=== PATIENT | female | born 1985 | race Caucasian/White ===

== ENCOUNTER 2016-11-26 13:12 | Outpatient (CLI) | payer OTHER | END 2016-11-26 13:13 | disposition home or self-care (01) | DX: O30.042 Twin pregnancy, dichorionic/diamniotic, second trimester (principal); O26.892 Other specified pregnancy related conditions, second trimester ==

== ENCOUNTER 2018-07-29 09:33 | Outpatient (CLI) | payer BC | END 2018-07-29 09:34 | disposition home or self-care (01) | LOC: LAB 09:33 | PROVIDERS: ATTEND Obstetrics & Gynecology | DX: N96 Recurrent pregnancy loss (principal); N91.2 Amenorrhea, unspecified | CPT/HCPCS: 36415; 84702 ==

== ENCOUNTER 2019-02-24 16:27 | Outpatient (CLI) | payer BC | END 2019-02-24 16:28 | disposition home or self-care (01) | LOC: LAB 16:27 | PROVIDERS: ATTEND Obstetrics & Gynecology | DX: O26.893 Other specified pregnancy related conditions, third trimester (principal); Z3A.34 34 weeks gestation of pregnancy | CPT/HCPCS: 82239 ==

== ENCOUNTER 2019-03-03 09:36 | Outpatient (CLI) | payer BC ==
[2019-03-03 10:38] LABS: ALBUMIN 2.9 g/dL (3.2-5.5); BILIRUBIN,DIRECT 0.1 mg/dL (0.1-0.5); BILIRUBIN,TOTAL 0.4 mg/dL (0.2-1.0); TOTAL PROTEIN 6.7 g/dL (6.7-8.2)
== END 2019-03-03 09:37 | disposition home or self-care (01) ==
LOC: LAB 09:36
PROVIDERS: ATTEND Student in an Organized Health Care Education/Training Program
DX: O26.613 Liver and biliary tract disorders in pregnancy, third trimester (principal); K83.1 Obstruction of bile duct
CPT/HCPCS: 36415; 80076

== ENCOUNTER 2019-11-09 18:40 | Outpatient (CLI) | payer OTHER ==
--- NOTE | 2019-11-10 10:09 | XRAY Report ---
Reason: INFLAMMATORY ARTHRITIS Procedure Date: 11/09/2019 Accession Number: [id number] / [id number] Procedure: XR - Foot 3 View BILAT CPT Code: Final Report FULL RESULT: EXAMS: 1. Right Foot Radiography 2. Left Foot Radiography EXAM DATE: 11/09/2019 07:14 PM. CLINICAL HISTORY: INFLAMMATORY ARTHRITIS. COMPARISON: FOOT 2 VIEW BILAT 02/14/2016 2:21 PM. TECHNIQUE: 3 views each foot. FINDINGS: Right: Bones: Normal. No fractures or bone lesions. Joints: Suggestion of calcaneonavicular coalition. No subluxations. Soft Tissues: Normal. No soft tissue swelling. Left: Bones: Normal. No fractures or bone lesions. Joints: Suggestion of calcaneonavicular coalition. No subluxations. Soft Tissues: Normal. No soft tissue swelling. IMPRESSION: 1. No radiographic evidence of inflammatory arthropathy. 2. Suggestion of bilateral calcaneonavicular coalitions. RADIA
--- NOTE | 2019-11-10 10:10 | XRAY Report ---
Reason: INFLAMMATORY ARTHRITIS Procedure Date: 11/09/2019 Accession Number: [id number] / [id number] Procedure: XR - Hand 3 View BILAT CPT Code: Final Report FULL RESULT: EXAMS: 1. Right Hand Radiography 2. Left Hand Radiography EXAM DATE: 11/09/2019 07:15 PM. CLINICAL HISTORY: INFLAMMATORY ARTHRITIS. COMPARISON: HAND 2 VIEW BILAT 02/14/2016 2:21 PM. TECHNIQUE: 3 views each hand. FINDINGS: Right: Bones: Normal. No fractures or bone lesions. Joints: Normal. No subluxations. Soft Tissues: Normal. No soft tissue swelling. Left: Bones: Normal. No fractures or bone lesions. Joints: Normal. No subluxations. Soft Tissues: Normal. No soft tissue swelling. IMPRESSION: Normal bilateral hand radiography. [facility]
== END 2019-11-09 18:41 | disposition home or self-care (01) ==
LOC: DI 18:40
PROVIDERS: ATTEND Internal Medicine
DX: M19.90 Unspecified osteoarthritis, unspecified site (principal)

== ENCOUNTER 2020-09-19 08:00 | Outpatient (CLI) | payer BC, OTHER ==
[2020-09-19 17:09] LABS: BASOPHILS % (AUTO) 0.4 %; EOSINOPHILS # (AUTO) 0.1 10^3/uL (0.0-0.7); EOSINOPHILS % (AUTO) 0.5 %; HGB - HEMOGLOBIN 11.5 g/dL (12.0-16.0); LYMPHOCYTES # (AUTO) 2.4 10^3/uL (1.5-3.5); LYMPHOCYTES % (AUTO) 22.8 %; MEAN CORPUSCULAR HGB CONC 31.7 g/dL (32.0-36.0); MEAN CORPUSCULAR VOLUME 91.4 fL (81.0-99.0); MEAN PLATELET VOLUME 9.1 fL (7.9-10.8); MONOCYTES # (AUTO) 0.5 10^3/uL (0.0-1.0); MONOCYTES % (AUTO) 4.9 %; NEUTROPHILS # (AUTO) 7.5 10^3/uL (1.5-6.6); NEUTROPHILS % (AUTO) 70.9 %; PLT - PLATELET COUNT 326 10^3/uL (130-450); RED BLOOD COUNT 3.97 10^6/uL (4.20-5.40); RED CELL DISTRIBUTION WIDTH 13.8 % (12.0-15.0); WHITE BLOOD COUNT 10.6 x10^3/uL (4.8-10.8)
[2020-09-19 17:27] LABS: ALBUMIN 4.2 g/dL (3.2-5.5); ALBUMIN/GLOBULIN RATIO 1.4 (1.0-2.2); BILIRUBIN,TOTAL 0.3 mg/dL (0.2-1.0); CALCIUM 9.2 mg/dL (8.5-10.3); CREATININE 0.6 mg/dL (0.4-1.0); TOTAL PROTEIN 7.3 g/dL (6.7-8.2)
== END 2020-09-19 23:59 | disposition home or self-care (01) ==
LOC: LAB 08:00
PROVIDERS: ATTEND Internal Medicine
DX: M05.79 Rheumatoid arthritis with rheumatoid factor of multiple sites without organ or systems involvement (principal)
CPT/HCPCS: 36415; 80053; 85025; 85651; 86140

== ENCOUNTER 2020-10-25 18:53 | Outpatient (CLI) | payer OTHER ==
--- NOTE | 2020-10-26 11:04 | Ultrasound Report ---
PROCEDURE: Pelvic w/Transvaginal INDICATIONS: ABNORMAL UTERINE BLEEDING TECHNIQUE: Real-time scanning was performed of the pelvic organs, with image documentation. Additional endovagi nal scanning was necessary due to incomplete visualization of the adnexal and endometrial structures by transabdominal scanning. COMPARISON: 01/21/2014 pelvic ultrasound FINDINGS: Mild amount of free fluid in the cul-de-sac is within physiologic normal limits. Uterus: Uterus is borderline enlarged measuring 5.1 x 6.1 x 9.0 cm. scar noted anteriorly. The endometrium measures 11 mm in combined double layer thickness. Heterogenous echogenicity of the endometrium with areas of hypoechoic signal presumably presenting most likely representing physiologi c cystic change. There is free fluid in the uterine cavity. No uterine mass. Ovaries: There is a complex cyst in the right ovary measuring approximately 2 x 2 x 2 cm, likely a r esolving hemorrhagic cyst. Multiple follicles are present in both ovaries. The ovaries are otherwise normal in size and appearance. IMPRESSION: Uterus is borderline enlarged with no uterine mass. Mildly thickened endometrium with heterogeneous echogenicity, similar appearance to the comparison ex am. Reviewed by: Godwin eDe MD on 10/26/2020 11:03 AM PST Approved by: Godwin Dee MD on 10/26/2020 11:03 AM PST Station ID: [id number]
== END 2020-10-25 18:54 | disposition home or self-care (01) ==
LOC: DI 18:53
PROVIDERS: ATTEND Obstetrics & Gynecology
DX: N93.9 Abnormal uterine and vaginal bleeding, unspecified (principal); N85.2 Hypertrophy of uterus; R93.89 Abnormal findings on diagnostic imaging of other specified body structures

== ENCOUNTER 2020-12-11 15:44 | Outpatient (CLI) | payer OTHER ==
[2020-12-11 16:14] LABS: BASOPHILS % (AUTO) 0.4 %; EOSINOPHILS # (AUTO) 0.1 10^3/uL (0.0-0.7); EOSINOPHILS % (AUTO) 0.5 %; HCT - HEMATOCRIT 37.3 % (37.0-47.0); HGB - HEMOGLOBIN 11.8 g/dL (12.0-16.0); LYMPHOCYTES # (AUTO) 2.5 10^3/uL (1.5-3.5); LYMPHOCYTES % (AUTO) 23.4 %; MEAN CORPUSCULAR HEMOGLOBIN 29.7 pg (27.0-31.0); MEAN CORPUSCULAR HGB CONC 31.6 g/dL (32.0-36.0); MEAN PLATELET VOLUME 9.2 fL (7.9-10.8); MONOCYTES # (AUTO) 0.5 10^3/uL (0.0-1.0); MONOCYTES % (AUTO) 4.3 %; NEUTROPHILS # (AUTO) 7.6 10^3/uL (1.5-6.6); NEUTROPHILS % (AUTO) 70.9 %; PLT - PLATELET COUNT 337 10^3/uL (130-450); RED BLOOD COUNT 3.97 10^6/uL (4.20-5.40); RED CELL DISTRIBUTION WIDTH 13.3 % (12.0-15.0); WHITE BLOOD COUNT 10.7 x10^3/uL (4.8-10.8)
[2020-12-11 16:28] LABS: ALBUMIN 4.2 g/dL (3.2-5.5); ALBUMIN/GLOBULIN RATIO 1.4 (1.0-2.2); ALKALINE PHOSPHATASE 32 IU/L (42-121); ALT ALANINE AMINOTRANSFERASE 12 IU/L (10-60); AST ASPARTATE AMINOTRANSFERASE 12 IU/L (10-42); BILIRUBIN,TOTAL 0.4 mg/dL (0.2-1.0); BUN - BLOOD UREA NITROGEN 15 mg/dL (6-20); CALCIUM 9.4 mg/dL (8.5-10.3); CARBON DIOXIDE - CO2 26 mmol/L (21-32); CHLORIDE 102 mmol/L (101-111); CREATININE 0.6 mg/dL (0.4-1.0); GFR - MDRD 114 (>89); GLUCOSE 111 mg/dL (70-100); POTASSIUM 3.9 mmol/L (3.5-5.0); SODIUM 137 mmol/L (135-145); TOTAL PROTEIN 7.1 g/dL (6.7-8.2)
[2020-12-11 16:36] LABS: CRP HIGH SENSITIVITY < 0.5 mg/L
== END 2020-12-11 15:45 | disposition home or self-care (01) ==
LOC: LAB 15:44
PROVIDERS: ATTEND Obstetrics & Gynecology
DX: M05.79 Rheumatoid arthritis with rheumatoid factor of multiple sites without organ or systems involvement (principal); N83.292 Other ovarian cyst, left side; Z79.899 Other long term (current) drug therapy
CPT/HCPCS: 36415; 80053; 85025; 85651; 86141; 86304

== ENCOUNTER 2021-03-12 11:00 | Outpatient (CLI) | payer OTHER ==
[2021-03-12 11:25] LABS: BASOPHILS % (AUTO) 0.2 %; EOSINOPHILS # (AUTO) 0.1 10^3/uL (0.0-0.7); EOSINOPHILS % (AUTO) 0.7 %; HCT - HEMATOCRIT 40.1 % (37.0-47.0); HGB - HEMOGLOBIN 13.1 g/dL (12.0-16.0); LYMPHOCYTES # (AUTO) 2.2 10^3/uL (1.5-3.5); MEAN CORPUSCULAR HGB CONC 32.7 g/dL (32.0-36.0); MEAN PLATELET VOLUME 9.6 fL (7.9-10.8); MONOCYTES # (AUTO) 0.6 10^3/uL (0.0-1.0); MONOCYTES % (AUTO) 6.5 %; NEUTROPHILS # (AUTO) 5.8 10^3/uL (1.5-6.6); NEUTROPHILS % (AUTO) 67.3 %; PLT - PLATELET COUNT 312 10^3/uL (130-450); RED BLOOD COUNT 4.36 10^6/uL (4.20-5.40); RED CELL DISTRIBUTION WIDTH 13.4 % (12.0-15.0); WHITE BLOOD COUNT 8.6 x10^3/uL (4.8-10.8)
[2021-03-12 11:56] LABS: ALBUMIN 4.4 g/dL (3.2-5.5); ALBUMIN/GLOBULIN RATIO 1.5 (1.0-2.2); BILIRUBIN,TOTAL 0.5 mg/dL (0.2-1.0); CALCIUM 9.3 mg/dL (8.5-10.3); CREATININE 0.5 mg/dL (0.4-1.0); CRP HIGH SENSITIVITY 0.8 mg/L; POTASSIUM 4.2 mmol/L (3.5-5.0); TOTAL PROTEIN 7.3 g/dL (6.7-8.2)
== END 2021-03-12 11:01 | disposition home or self-care (01) ==
LOC: LAB 11:00
PROVIDERS: ATTEND Internal Medicine
DX: M05.79 Rheumatoid arthritis with rheumatoid factor of multiple sites without organ or systems involvement (principal); Z79.899 Other long term (current) drug therapy
CPT/HCPCS: 36415; 80053; 85025; 85651; 86141

== ENCOUNTER 2021-06-15 09:34 | Outpatient (CLI) | payer OTHER ==
[2021-06-15 09:58] LABS: BASOPHILS % (AUTO) 0.3 %; EOSINOPHILS # (AUTO) 0.1 10^3/uL (0.0-0.7); HGB - HEMOGLOBIN 12.9 g/dL (12.0-16.0); LYMPHOCYTES # (AUTO) 1.8 10^3/uL (1.5-3.5); LYMPHOCYTES % (AUTO) 25.8 %; MEAN CORPUSCULAR HEMOGLOBIN 30.3 pg (27.0-31.0); MEAN CORPUSCULAR HGB CONC 32.3 g/dL (32.0-36.0); MEAN CORPUSCULAR VOLUME 93.9 fL (81.0-99.0); MEAN PLATELET VOLUME 9.8 fL (7.9-10.8); MONOCYTES # (AUTO) 0.5 10^3/uL (0.0-1.0); MONOCYTES % (AUTO) 7.5 %; NEUTROPHILS # (AUTO) 4.6 10^3/uL (1.5-6.6); NEUTROPHILS % (AUTO) 65.3 %; PLT - PLATELET COUNT 306 10^3/uL (130-450); RED BLOOD COUNT 4.26 10^6/uL (4.20-5.40); RED CELL DISTRIBUTION WIDTH 13.4 % (12.0-15.0); WHITE BLOOD COUNT 7.1 x10^3/uL (4.8-10.8)
[2021-06-15 10:17] LABS: ALBUMIN 4.1 g/dL (3.2-5.5); ALBUMIN/GLOBULIN RATIO 1.3 (1.0-2.2); ALKALINE PHOSPHATASE 42 IU/L (42-121); ALT ALANINE AMINOTRANSFERASE 13 IU/L (10-60); AST ASPARTATE AMINOTRANSFERASE 15 IU/L (10-42); BILIRUBIN,TOTAL 0.6 mg/dL (0.2-1.0); BUN - BLOOD UREA NITROGEN 9 mg/dL (6-20); CALCIUM 9.2 mg/dL (8.5-10.3); CARBON DIOXIDE - CO2 28 mmol/L (21-32); CHLORIDE 104 mmol/L (101-111); CREATININE 0.6 mg/dL (0.4-1.0); GFR - MDRD 113 (>89); GLUCOSE 78 mg/dL (70-100); POTASSIUM 3.7 mmol/L (3.5-5.0); SODIUM 141 mmol/L (135-145); TOTAL PROTEIN 7.2 g/dL (6.7-8.2)
[2021-06-15 10:36] LABS: CRP - C-REACTIVE PROTEIN < 1.0 mg/dL (0-1.0)
== END 2021-06-15 09:35 | disposition home or self-care (01) ==
LOC: LAB 09:34
PROVIDERS: ATTEND Internal Medicine
DX: M05.79 Rheumatoid arthritis with rheumatoid factor of multiple sites without organ or systems involvement (principal); Z79.899 Other long term (current) drug therapy
CPT/HCPCS: 36415; 80053; 85025; 85651; 86140

== ENCOUNTER 2021-09-23 15:11 | Outpatient (CLI) | payer OTHER ==
[2021-09-23 15:28] LABS: BASOPHILS % (AUTO) 0.3 %; EOSINOPHILS # (AUTO) 0.1 10^3/uL (0.0-0.7); EOSINOPHILS % (AUTO) 1.2 %; HCT - HEMATOCRIT 38.6 % (37.0-47.0); HGB - HEMOGLOBIN 12.3 g/dL (12.0-16.0); LYMPHOCYTES # (AUTO) 2.3 10^3/uL (1.5-3.5); LYMPHOCYTES % (AUTO) 26.3 %; MEAN CORPUSCULAR HEMOGLOBIN 29.4 pg (27.0-31.0); MEAN CORPUSCULAR HGB CONC 31.9 g/dL (32.0-36.0); MEAN CORPUSCULAR VOLUME 92.3 fL (81.0-99.0); MEAN PLATELET VOLUME 9.7 fL (7.9-10.8); MONOCYTES # (AUTO) 0.5 10^3/uL (0.0-1.0); MONOCYTES % (AUTO) 5.4 %; NEUTROPHILS # (AUTO) 5.8 10^3/uL (1.5-6.6); NEUTROPHILS % (AUTO) 66.6 %; PLT - PLATELET COUNT 351 10^3/uL (130-450); RED BLOOD COUNT 4.18 10^6/uL (4.20-5.40); RED CELL DISTRIBUTION WIDTH 13.7 % (12.0-15.0); WHITE BLOOD COUNT 8.7 x10^3/uL (4.8-10.8)
[2021-09-23 15:39] LABS: ALBUMIN 4.3 g/dL (3.2-5.5); ALBUMIN/GLOBULIN RATIO 1.2 (1.0-2.2); ALKALINE PHOSPHATASE 42 IU/L (42-121); ALT ALANINE AMINOTRANSFERASE 12 IU/L (10-60); AST ASPARTATE AMINOTRANSFERASE 12 IU/L (10-42); BILIRUBIN,TOTAL 0.4 mg/dL (0.2-1.0); BUN - BLOOD UREA NITROGEN 10 mg/dL (6-20); CARBON DIOXIDE - CO2 29 mmol/L (21-32); CHLORIDE 102 mmol/L (101-111); CREATININE 0.9 mg/dL (0.4-1.0); GFR - MDRD 71 (>89); GLUCOSE 86 mg/dL (70-100); SODIUM 138 mmol/L (135-145); TOTAL PROTEIN 7.8 g/dL (6.7-8.2)
[2021-09-23 15:59] LABS: CRP HIGH SENSITIVITY < 0.5 mg/L
== END 2021-09-23 15:12 | disposition home or self-care (01) ==
LOC: LAB 15:11
PROVIDERS: ATTEND Internal Medicine
DX: M05.79 Rheumatoid arthritis with rheumatoid factor of multiple sites without organ or systems involvement (principal); D84.9 Immunodeficiency, unspecified; Z79.899 Other long term (current) drug therapy
CPT/HCPCS: 36415; 80053; 85025; 85651; 86141; 86769

== ENCOUNTER 2022-05-06 20:19 | Outpatient (CLI) | payer OTHER ==
--- NOTE | 2022-05-07 10:26 | Ultrasound Report ---
PROCEDURE: Head or Neck Soft Tissue INDICATIONS: THYROID ANTIBODY POSITIVE TECHNIQUE: Real-time scanning was performed of the thyroid gland, with image documentation. COMPARISON: None FINDINGS: Right: Thyroid lobe measures 5.3 x 1.3 x 1.9 cm, and is homogeneous in echotexture. Left: Thyroid lobe measures 5.0 x 1.1 x 1.5 cm, and is homogenous in echotexture. Isthmus: 1.5 mm thick. No thyroid nodules identified. IMPRESSION: Normal thyroid ultrasound ACR TI-RADS definitions and recommendations: TI-RADS 1 (benign): 0 points. FNA not needed. TI-RADS 2 (not suspicious): 2 points. FNA not needed. TI-RADS 3 (mildly suspicious): 3 points. "FNA if 2.5 cm or larger, follow up if 1.5 cm or larger (at 1, 3, and 5 years). TI-RADS 4 (moderately suspicious): 4-6 points. "FNA if 1.5 cm or larger, follow up if 1 cm or larger (at 1, 2, 3, and 5 years). TI-RADS 5 (highly suspicious): 7 points or more. "FNA if 1 cm or larger, follow up if 0.5 cm or larger (every year for 5 years). Reviewed by: Tonio Leyva on 05/07/2022 10:24 AM PDT Approved by: Tonio Leyva on 05/07/2022 10:24 AM PDT Station ID: [id number]
== END 2022-05-06 20:20 | disposition home or self-care (01) ==
LOC: DI 20:19
PROVIDERS: ATTEND Internal Medicine
DX: R76.8 Other specified abnormal immunological findings in serum (principal); R13.10 Dysphagia, unspecified

== ENCOUNTER 2023-05-12 15:47 | Outpatient (CLI) | payer OTHER ==
--- NOTE | 2023-05-12 16:54 | XRAY Report ---
PROCEDURE: Foot 3 View LT INDICATIONS: PAIN IN LEFT FOOT TECHNIQUE: 3 views of the foot were acquired. COMPARISON: X-ray bilateral feet 11/09/2019. FINDINGS: Bones: No fractures or dislocations. No suspicious bony lesions. Soft tissues: No suspicious soft tissue calcifications or masses. IMPRESSION: No acute bony abnormality. If pain persists with conservative management, consider repeat radiographs in 10-14 days or cross-sectional imaging. Reviewed by: Albino Hughes MD on 05/12/2023 4:52 PM PDT Approved by: Albino Hughes MD on 05/12/2023 4:52 PM PDT Station ID: [id number]
== END 2023-05-12 15:48 | disposition home or self-care (01) ==
LOC: DI 15:47
PROVIDERS: ATTEND Naturopath
DX: M79.672 Pain in left foot (principal); S99.922A Unspecified injury of left foot, initial encounter

== ENCOUNTER 2023-09-20 19:36 | Emergency (ER) | payer OTHER ==
--- NOTE | 2023-09-20 21:50 | ED Physician Documentation ---
PD HPI LOWER EXT INJURY - Stated complaint Stated Complaint: L LEG PX/LUMP - Chief complaint Chief Complaint: Wound - History obtained from History obtained from: Patient - History of Present Illness PD HPI LOW EXT INJURY LOCATION: Left, Lower leg Type of injury: Other (unknown) Where injury occurred: Home Timing - onset: Today Timing - duration: Minutes Timing - details: Abrupt onset, Still present Improved by: Rest Worsened by: Moving, Palpating Associated symptoms: Swelling, Discolored. No: Weakness, Numbness, Tingling Contributing factors: No: Anticoagulated, Prior ortho surgery, Prosthetic joint, Work related Similar symptoms before: Has not had sx before Recently seen: Not recently seen - Additional information Additional information: 38 y/o female with a history of rheumatoid arthritis was standing in her kitchen making spaghetti when she felt a sudden pinch in her calf. She noted a lump and discoloration. She photographed this and photographed progression. She feels a hard lump colored blue and painful over the lateral aspect of the left lower extremity just below the knee. Review of Systems Constitutional: denies: Fever Ears: denies: Ear pain Nose: denies: Congestion Throat: denies: Sore throat Cardiac: denies: Chest pain / pressure Respiratory: denies: Dyspnea, Cough GI: denies: Abdominal Pain, Abdominal Swelling, Nausea, Vomiting, Constipation, Diarrhea : denies: Dysuria, Frequency Skin: reports: Lesions Musculoskeletal: reports: Extremity pain. denies: Neck pain, Back pain Neurologic: denies: Generalized weakness, Focal weakness, Numbness PD PAST MEDICAL HISTORY - Past Medical History Past Medical History: Yes Cardiovascular: None, Arrhythmia Respiratory: None Endocrine/Autoimmune: None GI: None : None HEENT: None Psych: None Musculoskeletal: Rheumatoid arthritis Derm: None - Past Surgical History Past Surgical History: Yes Cardiovascular: Other - Present Medications Home Medications: Ambulatory Orders Medication Instructions Recorded Confirmed methylPREDNISolone [Medrol] 4 mg PO 09/20/23 - Allergies Allergies/Adverse Reactions: Allergies Allergy/AdvReac Type Severity Reaction Status Date / Time hydrocodone Allergy Hives Verified 09/20/23 19:48 - Social History Does the pt smoke?: No Smoking Status: Never smoker Does the pt drink ETOH?: No Does the pt have substance abuse?: No - Immunizations Immunizations are current?: Yes - POLST Patient has POLST: No PD ED PE NORMAL - Vitals Vital signs reviewed: Yes (tachy and hypertensive ) - General General: Alert and oriented X 3, No acute distress, Well developed/nourished - HEENT HEENT: Atraumatic, PERRL, EOMI - Neck Neck: Supple, no meningeal sign, No bony TTP - Cardiac Cardiac: RRR, No murmur - Respiratory Respiratory: No respiratory distress, Clear bilaterally - Derm Derm: Normal color, Warm and dry, No rash - Extremities Extremities: Other (There is an area on the lateral aspect of the left calf 1 cm below the knee joint that is discolored bluish consistent with a bruise and the area is about 1 cm x 3 cm in size. It is tender there is a vein leading directly from it cephalad. This vein does not appear engorged.) - Neuro Neuro: Alert and oriented X 3, cryptologist 2-12 intact, No motor deficit, No sensory deficit, Normal speech Eye Opening: Spontaneous Motor: Obeys Commands Verbal: Oriented GCS Score: 15 - Psych Psych: Normal mood, Normal affect Results - Vitals Vitals: Vital Signs - 24 hr 09/20/23 09/20/23 19:43 22:25 Temperature 36.5 C 36.7 C Heart Rate 101 H 82 Respiratory 16 16 Rate Blood Pressure 147/103 H 117/59 L O2 Saturation 100 99 Oxygen O2 Source Room air - Rads (name of study) venous duplex Relevant Findings:: Prelim report reviewed (Impression: No deep venous thrombosis of the visualized lower extremity.), EMP independent interpretation of test, See rad report, Other (I personally reviewed the findings with the community planning technician in real-time regarding the specific area of interest. We were able to demonstrate a vein coursing through the mass and compressing.) PD Medical Decision Making - ED course Complexity details: reviewed old records, reviewed results, re-evaluated patient, considered differential, d/w patient ED course: 38-year-old Claudia López presented to the emergency department with a violaceous mass in the lateral aspect of her calf. My primary concern was for a superficial thrombophlebitis attached to the saphenous system and we were not able to demonstrate this. We were not able to establish thrombosis. The appearance is most consistent with a bruise to the area and bleeding underneath the skin. The historical component of this makes it difficult to confirm that this is a simple bruise. Departure - Departure Disposition: 01 Home, Self Care Clinical Impression: Contusion Qualifiers: Encounter type: initial encounter Contusion area: lower leg Laterality: left Qualified Code(s): S80.12XA - Contusion of left lower leg, initial encounter Condition: Stable Instructions: ED Contusion Lower Ext Follow-Up: FLOR MYLES MD [Physician No Access] - Comments: Claudia, today it looks like there is no evidence of thrombosis or clot formation in any of your veins. It does look like you have a bruise to your calf. In review of your history we did not discover the reason for this. The expectation is a resolution of this bruised area over the next 7 to 10 days. There may be some color changes. We are not expecting swelling of your lower extremity. If you develop edema return to the emergency department for reevaluation. Forms: PCP List Discharge Date/Time: 09/20/23 22:31
--- NOTE | 2023-09-20 21:55 | Ultrasound Report ---
PROCEDURE: Duplex Ext Veins Left INDICATIONS: Vein pain L superficial TECHNIQUE: Real-time imaging, as well as color and pulse Doppler interrogation, were performed of the lower extr emity deep veins from the inguinal ligament to the popliteal fossa. Attempted visualization of the ca lf veins was performed. COMPARISON: None. FINDINGS: The deep veins are normally compressible, and free of intraluminal thrombus. Color and pu lse Doppler demonstrate normal phasic intraluminal flow. There is normal augmentation response to di stal compression maneuver. IMPRESSION: No deep venous thrombosis of the visualized lower extremity. Reviewed by: Karen Cobos MD on 09/20/2023 9:54 PM PST Approved by: Karen Cobos MD on 09/20/2023 9:54 PM PST Station ID: [id number]
[2023-09-20 22:39] VITALS: BP 117/59; O2SAT 99
== END 2023-09-20 22:31 | disposition home or self-care (01) ==
LOC: ED 19:36
DX: S80.12XA Contusion of left lower leg, initial encounter (principal); X58.XXXA Exposure to other specified factors, initial encounter; Y93.G3 Activity, cooking and baking; Y92.000 Kitchen of unspecified non-institutional (private) residence as the place of occurrence of the external cause
CPT/HCPCS: 99283; 99284